=== PATIENT | male | born 1950 | race Caucasian/White ===

== ENCOUNTER 2018-04-17 13:26 | Emergency (ER) | payer MEDICARE ==
[~2018-04-17] VITALS: Ht 165.1 cm; Wt 68.2 kg
[2018-04-17 13:31] VITALS: Ht 165.1 cm; Wt 68.2 kg
[2018-04-17] MEDS ORDERED: PLAVIX75 MG PO (13:33)
[2018-04-17] MEDS ORDERED: ISOSORBIDE MONO60 M1 PO (13:33)
[2018-04-17] MEDS ORDERED: LIPITOR40 MG PO (13:33)
[2018-04-17] MEDS ORDERED: NITRO SPRAY (13:34)
[2018-04-17] MEDS ORDERED: BAYER CHEWABLE81 MG PO (13:34)
[2018-04-17] MEDS ORDERED: METOPROLOL TART25 MG PO (13:34)
[2018-04-17] MEDS ORDERED: PHENAZOPYRIDIN100 MG PO (13:35)
[2018-04-17] MEDS ORDERED: PERCOCET 7.5/321 TAB (13:35)
[2018-04-17] MEDS ORDERED: FLOMAX0.4 MG PO (13:35)
[2018-04-17 14:07] LABS: BASOPHILS 0.3 % (0-2); HEMATOCRIT 38.3 % (42.0-54.0); HEMOGLOBIN 12.1 g/dL (13.5-17.5); IMMATURE GRANULOCYTES 0.4 % (0-5); LYMPHOCYTES 19.2 % (15-50); MCH 26.5 pg (26.0-34.0); MCHC 31.6 g/dL (31.0-37.0); MEAN PLATELET VOLUME 9.8 fL (7.4-10.4); MONOCYTES 5.9 % (2-11); NEUTROPHILS 72.2 % (40-80); PLATELET COUNT 249 10x3/uL (130-400); RBC 4.56 10x6/uL (4.20-6.10); RDW 17.5 % (11.5-14.5); WBC 7.8 10x3/uL (4.8-10.8)
[2018-04-17 14:28] LABS: ALBUMIN 3.5 g/dL (3.4-5.0); ALKALINE PHOSPHATASE 97 U/L (46-116); ALT (SGPT) 22 U/L (10-68); BILIRUBIN - TOTAL 0.22 mg/dL (0.2-1.3); CALC OSMOLALITY 289 mosm/kg (275-300); CARBON DIOXIDE 24.6 mmol/L (21.0-32.0); CHLORIDE - SERUM 107 mmol/L (98-107); GLUCOSE 123 mg/dL (74-106); POTASSIUM - SERUM 3.5 mmol/L (3.5-5.1); PROTEIN - SERUM 7.3 g/dL (6.4-8.2); SODIUM 144 mmol/L (136-145); UREA NITROGEN 17 mg/dL (7-18); eGFR NON AFRICAN AMERICAN 79 mL/min (90-120)
[2018-04-17 15:01] LABS: APPEARANCE CLOUDY (CLEAR); COLOR DK YELLOW (YELLOW); SPECIFIC GRAVITY 1.025 (1.005-1.020)
[2018-04-17 15:02] LABS: AMORPHOUS SEDIMENT <1+ /lpf (NONE SEEN); BACTERIA MANY /hpf (NONE SEEN); BILIRUBIN NEGATIVE (NEGATIVE); GLUCOSE NEGATIVE (NEGATIVE); KETONE NEGATIVE (NEGATIVE); NITRITE POSITIVE (NEGATIVE); PROTEIN 2+ mg/dL (NEGATIVE); RED CELLS - URINE >50 /hpf (0-5); UROBILINOGEN NORMAL (NORMAL); WHITE CELLS - URINE 0-5 /hpf (0-5)
[2018-04-17] MEDS ORDERED: TORADOL10 MG PO (17:12)
[2018-04-17] MEDS ORDERED: LEVAQUIN750 MG PO (17:12)
[2018-04-17 18:17] VITALS: BP 131/70
[2018-04-22 19:07] LABS: AEROBE ID Final report (())
== END 2018-04-17 18:05 | disposition home or self-care (01) ==
LOC: D.ER 13:26
PROVIDERS: Family Medicine
DX: N39.0 Urinary tract infection, site not specified (principal); Z87.448 Personal history of other diseases of urinary system; N20.0 Calculus of kidney; R33.9 Retention of urine, unspecified; I10 Essential (primary) hypertension; F17.200 Nicotine dependence, unspecified, uncomplicated